=== PATIENT | female | born 1945 | race Caucasian/White ===

== ENCOUNTER → 2025-03-04 09:16 | Outpatient (CLI) | payer MEDICARE, OTHER, SELFPAY ==
--- NOTE | 2025-03-04 09:18 | DI.RAD.S_ITS ---
PROCEDURE: FL JOINT INJECTION LARGE RT
[2025-03-04] MEDS: TRIAMCINOLONE 40 MG/ML VIAL INTRA-ARTI (10:48)
[2025-03-04] MEDS: LIDOCAINE 1% 20 ML INJ (10:48)
== END ==
PROVIDERS: PCP Physician Assistant; Referring Provider Orthopaedic Surgery Adult Reconstructive Orthopaedic Surgery; Visit Provider Orthopaedic Surgery Adult Reconstructive Orthopaedic Surgery
DX: M16.11 Unilateral primary osteoarthritis, right hip (principal)
CPT/HCPCS: 20610; 77002; Q9967

== ENCOUNTER 2025-04-19 13:05 | Emergency (ER) | payer MEDICARE, OTHER, SELFPAY ==
[2025-04-19 13:13] LABS: Culture Indicated Urine Specimen Cultured
[2025-04-19 13:16] VITALS: BP 141/64; PULSE 94; RESP 16; O2SAT 98; BMI 27.2
--- NOTE | 2025-04-19 16:14 | DI.RAD.S_ITS ---
PROCEDURE: XR HIP W PEL IF DONE RT 2V INDICATIONS: hip pain TECHNIQUE: AP pelvis with lateral view(s) of the right hip(s). COMPARISON: Right hip radiographs 06/10/2024. FINDINGS: Bones: No fractures or dislocations. Pelvic ring appears intact. No suspicious bony lesions. There is severe right hip osteoarthrosis with severe joint space narrowing and [id number] apposition at the superior lateral aspect, subchondral cysts and osteophytosis. Findings have progressed since prior radiograph on 06/10/2024. Soft tissues: The visualized bowel gas pattern is normal. No suspicious soft tissue calcifications. IMPRESSION: No acute bony abnormality. Severe right hip osteoarthrosis, progressed since May 2024. Approved by: Mayra Viveros M.D.,Ph.D. on 04/19/2025 at 17:34
[2025-04-19 19:20] VITALS: BP 177/72; PULSE 69; RESP 16; O2SAT 99
--- NOTE | 2025-04-26 18:52 | ED.BACK ---
HPI - Back Pain/Injury General Chief Complaint: Back Pain/Injury Stated Complaint: Low back pain Time Seen by Provider: 04/19/25 13:28 Source: patient and EMS History of Present Illness HPI Narrative: 79-year-old female with past medical history arthritis, Parkinson's presents to the ED with worsening back pain for the last 2 weeks. Denies trauma. Patient describes the pain as in the lower back, pain radiates down to the right leg. Patient states that she has been getting injections for the pain, has felt better since the injections usually, however after the last injection her pain has worsened. No urinary incontinence, urinary hesitancy, bowel incontinence. No saddle paresthesias. There is some numbness, however no tingling or weakness. Related Data Previous Rx's ?Medication ?Instructions ?Recorded tramadol 50 mg tablet 50 mg PO TID PRN pain #20 tabs 04/19/25 Allergies Allergy/AdvReac Type Severity Reaction Status Date / Time Penicillins Allergy Mild Verified 04/26/25 09:02 pregabalin (From Lyrica) Allergy Mild Verified 04/26/25 09:02 Review of Systems Constitutional Constitutional: Denies chills, Denies fatigue, Denies fever(s), Denies frequent falls, Denies lethargy and Denies weakness Eyes Eyes: Denies change in vision, Denies eye discharge, Denies irritation and Denies loss of vision ENT Ears, Nose, Mouth, and Throat: Denies change in voice, Denies dizziness, Denies neck pain, Denies sore throat and Denies throat swelling Cardiovascular Cardiovascular: Denies chest pain, Denies irregular heart rhythm, Denies lightheadedness, Denies palpitations, Denies dyspnea, Denies dyspnea on exertion and Denies orthopnea Respiratory Respiratory: Denies cough, Denies dyspnea, Denies dyspnea on exertion and Denies wheezing Gastrointestinal Gastrointestinal: Denies abdominal pain, Denies change in bowel habits, Denies diarrhea, Denies nausea and Denies vomiting Musculoskeletal Musculoskeletal: Reports back pain, Denies neck pain and Denies numbness Comments: R hip pain Integumentary/Breasts Skin/Breast: Denies pruritus, Denies erythema, Denies rash and Denies wounds Neurologic Neurologic: Denies behavioral changes, Denies confusion, Denies dizziness, Denies frequent falls, Denies loss of vision, Denies numbness and Denies weakness Psychiatric Psychiatric: Denies anxiety, Denies behavioral changes, Denies confusion, Denies depression, Denies homicidal ideation and Denies suicidal ideation Endocrine Endocrine: Denies fatigue, Denies flushing and Denies palpitations Hematologic/Lymphatic Hematologic/Lymphatic: Denies easy bruising Allergic/Immunologic Allergic/Immunologic: Denies urticaria, Denies throat swelling and Denies wheezing Patient History Medical History Primary osteoarthritis of right hip Social History Smoking Status: Never smoker Smoking Status: Never smoker Exam Narrative Exam Narrative: Const General:?cooperative, healthy appearing and comfortable HENMT Head:?normal to inspection Ears:?hearing grossly normal bilaterally Nose:?external nose normal Face and sinus:?normal facial exam and sinuses nontender Mouth:?oral mucosae normal Throat:?posterior oropharynx normal Eyes General:?appearance normal, both eyes and all related structures Neck Neck:?normal visual inspection and no lymphadenopathy noted Resp Effort & Inspection:?normal respiratory effort Auscultation:?clear to auscultation bilaterally Cardio Rate:?regular rate Rhythm:?regular rhythm Musculoskeletal No midline tenderness to palpation. No paraspinal tenderness to palpation. There is some tenderness to the right hip. Neurovascularly intact. Neuro General:?patient alert, patient awake and patient oriented x3 Initial Vital Signs Initial Vital Signs: Vital Signs Pulse Rate 94 H 04/19/25 13:16 Respiratory Rate 16 04/19/25 13:16 Blood Pressure 141/64 H 04/19/25 13:16 Pulse Oximetry 98 04/19/25 13:16 Oxygen Delivery Method Room Air 04/19/25 13:16 Course Orders Ordered: Discontinued Medications Tramadol HCl (Tramadol 50 Mg Tablet) 50 mg PO NOW ONE Stop: 04/19/25 18:31 Last Admin: 04/19/25 18:35 Dose: 50 mg Documented By: ALLEY MDM - Back Pain/Injury Lab Data Labs: Lab Results 04/19/25 Range/Units 13:00 Urine RBC None seen (0-5/HPF) Urine WBC 1-5/hpf (0-5/HPF) Ur Squamous Epith Cells None seen (0-5/HPF) Urine Bacteria None seen (None) Ur Culture Indicated? Specimen cultured Vol Urine Centrifuged 10ml (spun) Urine Dip Bedside Urine Glucose Negative Bedside Urine Bilirubin - Negative Bedside Urine Ketone - Negative Urine Specific [place] 1.005 Bedside Urine Occult Blood - Negative Bedside Urine pH 7.5 Bedside Urine Protein - Negative Bedside Urine Urobilinogen - Negative Bedside Urine Nitrite - Negative Bedside Urine Leukocytes +/- 15 Esterase MDM Narrative Medical decision making narrative: 79-year-old female with past medical history arthritis, Parkinson's presents to the ED with worsening back pain for the last 2 weeks. On exam, it appears that patient is localizing the pain more to the right hip than the back. X-ray was obtained to rule out acute bony abnormalities. X-ray was without any acute bony abnormalities. Severe right hip osteoarthrosis, progressed since May 2024. Discussed findings with patient that her symptoms are likely due to worsening arthritis. Recommend patient follow-up with Dr. Narvaez for further evaluation. Patient has been getting the injections at Dr. Narvaez's office. It appears that he is already aware of patient's worsening pain, since patient called the office. Prescribed some pain medication. ED return precautions discussed with patient. Patient verbalized understanding. Medical records reviewed: Yes Discharge Plan Departure Patient Disposition: Home Clinical Impression: Hip pain Qualifiers: Laterality: right Qualified Code(s): M25.551 - Pain in right hip Instructions: DI for Hip Pain Activity Restrictions/Additional Instructions: You were evaluated in the emergency department today for right-sided hip pain. Your x-ray does not show any fractures or dislocations, just arthritis it has worsened since the last x-ray earlier this year. Dr. Narvaez is aware that you are experiencing worsening pain, would like to see you in clinic to re-evaluate. Please give his office a call as soon as possible. Return to the ED if you have worsening symptoms, urinary difficulties, numbness, tingling, weakness. Prescriptions: New tramadol 50 mg tablet 50 mg PO TID PRN (Reason: pain) Qty: 20 0RF Referrals: Alexsandra Crawley PA-C [Primary Care Provider, Medical] Stand Alone Forms: Patient Portal/API
== END 2025-04-19 19:10 | disposition home or self-care (01) ==
PROVIDERS: Emergency Medicine; Emergency Provider Student in an Organized Health Care Education/Training Program; PCP Physician Assistant
DX: M25.551 Pain in right hip (principal); M16.11 Unilateral primary osteoarthritis, right hip
CPT/HCPCS: 73502; 81003; 81015; 87086; 99283

== ENCOUNTER 2025-05-11 13:42 | Emergency (ER) | payer MEDICARE, OTHER, SELFPAY ==
[2025-05-11 14:00] VITALS: BP 111/72; PULSE 85; RESP 20; TEMP 37; O2SAT 96; BMI 27.8
--- NOTE | 2025-05-11 16:50 | ED_ITS ---
HPI - Back Pain/Injury <Luz Ruiz PA-C - Last Filed: 05/11/25 19:58> General Chief Complaint: Back Pain/Injury Stated Complaint: UTI symptoms Time Seen by Provider: 05/11/25 14:25 Source: patient History of Present Illness HPI Narrative: Ms. Simpson is an 79-year-old female with a past medical history of Parkinson's disease, arthritis who presents to the emergency department via EMS from nursing facility in [place] for ?burning sensation on back?. Patient is concerned that burning sensation was due to a medication that she was given at her facility however daughter is concerned she may have a UTI as she has been having urinary frequency. At my time of evaluation patient denies any pain and states that the pain she had earlier has actually gone away reports that she does deal with chronic aches and pains due to her Parkinson's. Denies fevers, chills, chest pain, shortness of breath, abd pain, flu-like symptoms. Her daughter Senait contributed to history via phone. Related Data Previous Rx's ?Medication ?Instructions ?Recorded tramadol 50 mg tablet 50 mg PO TID PRN pain #20 ta bs 04/19/25 cephalexin 500 mg capsule 500 mg PO BID 7 days #14 cap s 05/11/25 Allergies Allergy/AdvReac Type Severity Reaction Status Date / Time Penicillins Allergy Mild Verified 05/11/25 14:00 pregabalin (From Lyrica) Allergy Mild Verified 05/11/25 14:00 Review of Systems <Luz Ruiz PA-C - Last Filed: 05/11/25 19:58> Review of Systems ROS Unobtainable: All systems reviewed & are unremarkable except as noted in HPI and below Patient History <Luz Ruiz PA-C - Last Filed: 05/11/25 19:58> Medical History Primary osteoarthritis of right hip Social History Smoking Status: Never smoker Smoking Status: Never smoker Exam <Luz Ruiz PA-C - Last Filed: 05/11/25 19:58> Narrative Exam Narrative: GENERAL: 79 year old patient appears stated age. Well-developed patient, in no acute distress. HEAD: Atraumatic. Normocephalic. EYES: No scleral icterus. No injection or drainage. NECK: Trachea midline. Cervical ROM intact. CARDIOVASCULAR: Regular rate RESPIRATORY: ?Nonlabored respirations. ?Speaking in clear, full sentences. GASTROINTESTINAL: Abdomen soft, non-tender, nondistended. BS present. BACK: Patient has no midline spinal tenderness or paralumbar spinal tenderness but shows me that her previous pain was across the lumbar region. NEURO: Alert and oriented, answers my questions however her history does seem to change. Moves all extremities. Ambulates with unsteady gait at baseline. SKIN: No rash or erythema of visible areas Initial Vital Signs Initial Vital Signs: Vital Signs Temperature 98.6 F 05/11/25 14:00 Pulse Rate 85 05/11/25 14:00 Respiratory Rate 20 05/11/25 14:00 Blood Pressure 111/72 05/11/25 14:00 Pulse Oximetry 96 05/11/25 14:00 Oxygen Delivery Method Room Air 05/11/25 14:00 <Booker Webster MD - Last Filed: 05/12/25 00:34> Initial Vital Signs Initial Vital Signs: Vital Signs Temperature 98.6 F 05/11/25 14:00 Pulse Rate 85 05/11/25 14:00 Respiratory Rate 20 05/11/25 14:00 Blood Pressure 111/72 05/11/25 14:00 Pulse Oximetry 96 05/11/25 14:00 Oxygen Delivery Method Room Air 05/11/25 14:00 Course <Luz Ruiz PA-C - Last Filed: 05/11/25 19:58> Orders Ordered: ED Orders 05/11/25 17:10 Urine Culture Stat Urine Microscopic Stat Discontinued Medications Acetaminophen (Acetaminophen 325 Mg Tablet) 975 mg PO NOW ONE Stop: 05/11/25 17:04 Last Admin: 05/11/25 18:04 Dose: 975 mg Documented By: MARTINE Cephalexin HCl (Cephalexin 250 Mg Capsule) 500 mg PO NOW ONE Stop: 05/11/25 18:16 Last Admin: 05/11/25 18:30 Dose: 500 mg Documented By: ILSA Cephalexin HCl (Cephalexin 250 Mg Capsule) 500 mg PO QID ROSITA Cephalexin HCl (Cephalexin 250 Mg Capsule) 1,000 mg PO NOW ONE Stop: 05/11/25 19:40 Last Admin: 05/11/25 19:50 Dose: 1,000 mg Documented By: AB Vital Signs Vital signs: Vital Signs - 8 hr 05/11/25 19:57 Pulse Rate 79 Respiratory Rate 15 Blood Pressure 129/70 Pulse Oximetry 93 Oxygen Delivery Method Room Air <Booker Webster MD - Last Filed: 05/12/25 00:34> Orders Ordered: ED Orders 05/11/25 17:10 Urine Culture Stat Urine Microscopic Stat Discontinued Medications Acetaminophen (Acetaminophen 325 Mg Tablet) 975 mg PO NOW ONE Stop: 05/11/25 17:04 Last Admin: 05/11/25 18:04 Dose: 975 mg Documented By: MARTINE Cephalexin HCl (Cephalexin 250 Mg Capsule) 500 mg PO NOW ONE Stop: 05/11/25 18:16 Last Admin: 05/11/25 18:30 Dose: 500 mg Documented By: ILSA Cephalexin HCl (Cephalexin 250 Mg Capsule) 500 mg PO QID ROSITA Cephalexin HCl (Cephalexin 250 Mg Capsule) 1,000 mg PO NOW ONE Stop: 05/11/25 19:40 Last Admin: 05/11/25 19:50 Dose: 1,000 mg Documented By: AB Vital Signs Vital signs: Vital Signs - 8 hr 05/11/25 19:57 Pulse Rate 79 Respiratory Rate 15 Blood Pressure 129/70 Pulse Oximetry 93 Oxygen Delivery Method Room Air MDM - Back Pain/Injury <Luz Ruiz PA-C - Last Filed: 05/11/25 19:58> Medical Records Attestation: I reviewed the patient's medical records. Lab Data Labs: Lab Results 05/11/25 Range/Units 17:10 Urine RBC None seen (0-5/HPF) Urine WBC 5-10/hpf H (0-5/HPF) Ur Squamous Epith Cells 1-5 /hpf (0-5/HPF) Urine Bacteria Moderate (10-30) H (None) Ur Culture Indicated? Specimen cultured Vol Urine Centrifuged 10ml (spun) Urine Dip Bedside Urine Glucose Negative Bedside Urine Bilirubin - Negative Bedside Urine Ketone + 15 Urine Specific [place] 1.010 Bedside Urine Occult Blood - Negative Bedside Urine pH 6.0 Bedside Urine Protein - Negative Bedside Urine Urobilinogen - Negative Bedside Urine Nitrite - Negative Bedside Urine Leukocytes ++ 125 Esterase MDM Narrative Medical decision making narrative: 79-year-old female with a past medical history of Parkinson's disease, arthritis who presents to the emergency department via EMS from nursing facility in [place] for ?burning sensation on back?. Differential diagnosis includes but isn't limited to medication reaction, UTI, etc. On exam patient is in no acute distress, nontoxic appearing, vital signs appropriate. She is here concerned that a medication caused her to have symptoms earlier however the symptoms have resolved. However given her symptoms were low back discomfort and she is having urinary frequency, we will obtain urinalysis as daughter's concerned for UTI. We will treat with Tylenol. Urinalysis reveals WBCs and bacteria, specimen was cultured, we will treat given patient is symptomatic. We will treat with Keflex b.i.d. x7 days with urine culture pending. Patient verbalized understanding of this plan and is agreeable, the patient's daughter is also agreeable. She lives at [facility] and therefore require transfer back to her facility. All questions answered, 1st dose of antibiotic provided, patient also received prepack of cephalexin 250 mg, 2 tabs twice a day, for tomorrow as due to the holiday she will not have her prescription available. All questions answered and she is stable for transfer back to her facility. <Booker Webster MD - Last Filed: 05/12/25 00:34> Lab Data Labs: Lab Results 05/11/25 Range/Units 17:10 Urine RBC None seen (0-5/HPF) Urine WBC 5-10/hpf H (0-5/HPF) Ur Squamous Epith Cells 1-5 /hpf (0-5/HPF) Urine Bacteria Moderate (10-30) H (None) Ur Culture Indicated? Specimen cultured Vol Urine Centrifuged 10ml (spun) Urine Dip Bedside Urine Glucose Negative Bedside Urine Bilirubin - Negative Bedside Urine Ketone + 15 Urine Specific [place] 1.010 Bedside Urine Occult Blood - Negative Bedside Urine pH 6.0 Bedside Urine Protein - Negative Bedside Urine Urobilinogen - Negative Bedside Urine Nitrite - Negative Bedside Urine Leukocytes ++ 125 Esterase Discharge Plan Departure Patient Disposition: Home Clinical Impression: Acute UTI Instructions: DI for Urinary Tract Infection (UTI) Activity Restrictions/Additional Instructions: Dear Ms. Simpson, Thank you for coming to the emergency department. Today you were evaluated for low back burning and urinary frequency. Your urinalysis today is consistent with a urinary tract infection and you have been prescribed oral antibiotics to complete. A urine culture is currently pending and you will be called if a change is needed to the antibiotic. Please follow up with your primary care doctor within the next 2-3 days for ER follow-up. (If you do not have a PCP you can call [phone]. ?to schedule an appointment with an [facility] Primary Care Provider) IF YOU DEVELOP ANY NEW OR WORSENING SYMPTOMS, RETURN TO THE ER! Please read the attached instructions, they highlight more specific treatments and interventions for you at home. Thank you for letting me participate in your care, Luz Ruiz PA-C Prescriptions: New cephalexin 500 mg capsule 500 mg PO BID 7 Days Qty: 14 0RF No Action tramadol 50 mg tablet 50 mg PO TID PRN (Reason: pain) Qty: 20 0RF Referrals: Alexsandra Crawley PA-C [Primary Care Provider, Medical] Stand Alone Forms: Patient Portal/API ED Sign-out <Booker Webster MD - Last Filed: 05/12/25 00:34> [facility]: I was immediately available in the department for consultation. This documentation has been reviewed and I agree with assessment and plan. Supervised by Booker Webster MD
[2025-05-11 17:51] LABS: Culture Indicated Urine Specimen Cultured
[2025-05-11] MEDS: ACETAMINOPHEN 325 MG TABLET 975 MG PO (18:04)
[2025-05-11 19:57] VITALS: BP 129/70; PULSE 79; RESP 15; O2SAT 93
== END 2025-05-11 20:01 | disposition home or self-care (01) ==
PROVIDERS: Emergency Provider Physician Assistant; PCP Physician Assistant
DX: N39.0 Urinary tract infection, site not specified (principal)
CPT/HCPCS: 81003; 81015; 87086; 99283